=== PATIENT | male | born 1985 | race Caucasian/White ===

== ENCOUNTER 2018-12-04 19:02 | Emergency (ER) | payer SELFPAY ==
[2018-12-04 19:22] VITALS: BP 138/77; PULSE 73; TEMP 98.5; BMI 32.2
--- NOTE | 2018-12-04 19:23 | PDOC ---
Rapid Medical Evaluation Chief Complaint: Constipation Time Seen by Provider: 12/04/18 19:20 Medical Evaluation: 12/04/18 19:21 I have performed a brief in-person evaluation of this patient. The patient presents with a chief complaint of: constipated x 1month on and off. Used Prune juice and Miralax Pertinent physical exam findings: abd soft/ non distended I have ordered the following: Flat and Upright Abd The patient will proceed to the ED for further evaluation. 12/04/18 19:22 Discharge Disposition - Diagnosis Constipation - Referrals - Patient Instructions - Post Discharge Activity
--- NOTE | 2018-12-04 20:54 | PDOC ---
History of Present Illness - General Chief Complaint: Constipation Stated Complaint: PENILE PAIN Time Seen by Provider: 12/04/18 19:20 History Source: Patient - History of Present Illness Initial Comments: 12/04/18 20:48 33-year-old male with constipation for 1 month on and off. Today with hard BM noted to have blood in stool. Denies abdominal pain, nausea, vomiting, diarrhea , fever. Patient took [id number] constipation medication with no relief in pain. Patient reports that he has been switching diet [id number] No past medical history Past History - Past Medical History Allergies/Adverse Reactions: Allergies Allergy/AdvReac Type Severity Reaction Status Date / Time No Known Allergies Allergy Verified 12/04/18 19:22 Home Medications: Ambulatory Orders Hydrocortisone Acetate [Anusol Hc Suppository -] 25 mg RC DAILY #14 supp.rect Magnesium Citrate 295 ml PO ONCE #1 solution 12/04/18 Polyethylene Glycol 3350 [Miralax (For Daily Use) -] 17 gm PO DAILY #1 bottle COPD: No - Suicide/Smoking/Psychosocial Hx Smoking History: Never smoked Review of Systems - Review of Systems Able to Perform ROS?: Yes Is the patient limited Ivorian proficient: No *Physical Exam - Vital Signs Last Vital Signs Temp Pulse Resp BP Pulse Ox 98.5 F 73 18 138/77 99 12/04/18 19:21 12/04/18 19:21 12/04/18 19:21 12/04/18 19:21 12/04/18 19:21 - Physical Exam General Appearance: Yes: Appropriately Dressed Respiratory/Chest: positive: Lungs Clear, Normal Breath Sounds Gastrointestinal/Abdominal: positive: Normal Bowel Sounds, Soft. negative: Tender Rectal Exam: positive: hemorrhoids (likely internal hemorrhoids, slight bleeding noted on exam. no external hemorrhoid) Extremity: positive: Normal Capillary Refill Integumentary: positive: Normal Color, Dry, Warm Neurologic: positive: Fully Oriented, Alert Progress Note - Progress Note Progress Note: constipation; hemorrhoids P: miralax xray magcitrate anusol. *DC/Admit/Observation/Transfer Diagnosis at time of Disposition: Constipation Qualifiers: Constipation type: unspecified constipation type Qualified Code(s): K59.00 - Constipation, unspecified - Discharge Dispostion Disposition: HOME - Prescriptions Prescriptions: Hydrocortisone Acetate [Anusol Hc Suppository -] 25 mg RC DAILY #14 supp.rect Magnesium Citrate 295 ml PO ONCE #1 solution Polyethylene Glycol 3350 [Miralax (For Daily Use) -] 17 gm PO DAILY #1 bottle - Referrals Referrals: Cynthia De Los Santos MD [Staff Physician] - Call tomorrow - Patient Instructions Printed Discharge Instructions: Constipation Additional Instructions: drink plenty of fluids. take Mag citrate one bottle. Start MiraLAX as prescribed. Follow-up with a artillery or naval gunfire observer as soon as possible. return to the emergency room for any worsening symptoms. - Post Discharge Activity Forms/Work/School Notes: Back to Work
== END 2018-12-04 21:03 | disposition home or self-care (01) ==
LOC: JERFT 19:02
DX: K64.8 Other hemorrhoids (principal); K59.00 Constipation, unspecified
CPT/HCPCS: 74019-TC-FY; 99281-25

== ENCOUNTER 2019-03-16 23:41 | Emergency (ER) | payer OTHER ==
[2019-03-17 00:30] VITALS: BP 123/63; TEMP 98.4; BMI 27.3
--- NOTE | 2019-03-17 02:35 | PDOC ---
History of Present Illness - General Chief Complaint: Shortness of Breath Stated Complaint: DIFFICULTY BREATHING Time Seen by Provider: 03/17/19 02:35 Past History - Past Medical History Allergies/Adverse Reactions: Allergies Allergy/AdvReac Type Severity Reaction Status Date / Time No Known Allergies Allergy Verified 12/04/18 19:22 Home Medications: Ambulatory Orders Hydrocortisone Acetate [Anusol Hc Suppository -] 25 mg RC DAILY #14 supp.rect Magnesium Citrate 295 ml PO ONCE #1 solution 12/04/18 Polyethylene Glycol 3350 [Miralax (For Daily Use) -] 17 gm PO DAILY #1 bottle Benzonatate [Tessalon Pearls -] 100 mg PO TID #21 capsule 03/17/19 COPD: No - Psycho Social/Smoking Cessation Hx Smoking History: Never smoked Have you smoked in the past 12 months: No Information on smoking cessation initiated: No Hx Alcohol Use: No Drug/Substance Use Hx: No *Physical Exam - Vital Signs Last Vital Signs Temp Pulse Resp BP Pulse Ox 98.4 F 56 L 18 123/63 100 03/16/19 23:55 03/16/19 23:55 03/16/19 23:55 03/16/19 23:55 03/16/19 23:55 Medical Decision Making - Medical Decision Making HPI: 33yo M with PMH of constipation presenting with cough x 2 weeks. Patient states the cough is nonproductive but has worsened in frequency such that he will sometimes feel chest pain and shortness of breath after a coughing fit. Patient has never had cough like this before. Has not taken anything for his cough. No history of asthma or COPD. Quit smoking several years ago. 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 Has had a normal appetite. No fevers, night sweats, or unexpected weight loss. ROS: Constitutional: no fever, no chills HEENT: no throat pain, no dysphagia Cardiovascular: +chest pain, no palpitations Respiratory: +cough,+shortness of breath Gastrointestinal: no abdominal pain, no nausea Genitourinary: no dysuria, no hematuria Musculoskeletal: no myalgia, no arthralgia Skin: no rash, no itching Neurologic: no headache, no weakness PE: General: Awake, alert, and fully oriented, in no acute distress Head: No signs of trauma Eyes: EOMI, sclera anicteric ENT: Moist mucus membranes Neck: Normal ROM, supple Lungs: Lungs clear, Normal breath sounds Cardio: Regular rhythm, S1 and S2 present Abdomen: Soft, nontender Extremities: Normal range of motion, Distal pulses present SKIN: Warm, Dry, normal turgor Neurologic: Cranial nerves II through XII grossly intact. Normal speech ED Course/MDM: DDX including but not limited to acute bronchitis, URI, PNA, PE, ACS decadron duoneb will reassess EKG at 2:13: rate 53, QTc 392, sinus bradycardia 03/17/19 02:35 Patient feeling better CXR without acute pathology, my impression 03/17/19 04:50 Patient likely has acute bronchitis. Without infiltrate on xray, would likely not benefit from antibiotics. Prescription for tessalon perles sent to pharmacy. Discharged with return precautions. Discharge - Discharge Information Problems reviewed: Yes Clinical Impression/Diagnosis: Bronchitis Condition: Improved Disposition: HOME - Additional Discharge Information Prescriptions: Benzonatate [Tessalon Pearls -] 100 mg PO TID #21 capsule - Follow up/Referral Referrals: [facility] [place] [Provider Group] - Patient Discharge Instructions Patient Printed Discharge Instructions: DI for Acute Bronchitis Additional Instructions: You were seen in the emergency department for cough. Your Chest X-Ray was normal. You received a breathing treatment which improved your symptoms. Prescription sento your pharmacy. Take as instructed. Follow-up with a primary care provider within 72 hours to discuss this ED visit and to further evaluate your symptoms. Your workup is not complete until you do so. You have been referred to the [facility] in case you do not have a primary care doctor. Call and make an appointment at the number provided. Immediate medical attention is required if you experience: shortness of breath, chest pain, focal weakness, or any new or concerning symptoms. If you think you are having an emergency, call for emergency medical services or present to the emergency department right away. - Post Discharge Activity Work/Back to School Note: Back to Work, Parent(s) Back to Work Note
--- NOTE | 2019-03-17 02:41 | PDOC ---
Attending Attestation - Resident Resident Name: Adriana Kay - ED Attending Attestation I have performed the following: I have examined & evaluated the patient, The case was reviewed & discussed with the resident, I agree w/resident's findings & plan - HPI HPI: 03/17/19 06:53 see resident hpi - Physicial Exam PE: 03/17/19 06:53 agree with resident exam - Medical Decision Making 03/17/19 06:53 33 yo male with 2 weeks of cough EKG and CXR unremarkable improved after dexamethasone and duoneb d/c with primary care follow up
[2019-03-17] MEDS ORDERED: ALBUTEROL SO4 2.5/IPRATROPIUM 0.5 INH SOL 3 ML VIAL.NEB. NEB ONE ×2 (03:25→03:29)
[2019-03-17] MEDS ORDERED: DEXAMETHASONE SOD PHOSPHATE 10 MG/1 ML VIAL IM ONE (03:25)
[2019-03-17] MEDS ORDERED: DEXAMETHASONE SOD PHOSPHATE 10 MG/1 ML VIAL ONE (03:29)
[2019-03-17 05:01] VITALS: PULSE 86
--- NOTE | 2019-03-17 15:35 | EKG ---
Test Reason : Blood Pressure : / mmHG Vent. Rate : 053 BPM Atrial Rate : 053 BPM P-R Int : 180 ms QRS Dur : 094 ms QT Int : 418 ms P-R-T Axes : 038 067 017 degrees QTc Int : 392 ms SINUS BRADYCARDIA OTHERWISE NORMAL ECG NO PREVIOUS ECGS AVAILABLE Confirmed by Isaiah Fuentes MD ([id number]) on 03/17/2019 3:34:32 PM Referred By: Confirmed By:Isaiah Fuentes MD
== END 2019-03-17 05:12 | disposition home or self-care (01) ==
LOC: JER 23:41
PROC: 3E0F7GC Introduction of Other Therapeutic Substance into Respiratory Tract, Via Natural or Artificial Opening (ICD-10-PCS; principal; 2019-03-16)
PROC: 3E0233Z Introduction of Anti-inflammatory into Muscle, Percutaneous Approach (ICD-10-PCS; 2019-03-16)
DX: J40 Bronchitis, not specified as acute or chronic (principal)
CPT/HCPCS: 71046-TC-FY; 93005; 93010; 99282-25; J1100

== ENCOUNTER 2019-12-11 18:30 | Emergency (ER) | payer OTHER ==
[2019-12-11 18:39] VITALS: BP 144/75; PULSE 100; TEMP 98; BMI 30.2
== END 2019-12-11 21:12 | disposition home or self-care (01) ==
LOC: JERFT 18:30 → JER 18:30 → JERFT 21:12
DX: R07.89 Other chest pain (principal)
CPT/HCPCS: 99283-25